=== PATIENT | male | born 1975 | race Caucasian/White ===

== ENCOUNTER 2020-07-07 12:20 | Outpatient (CLI) | payer OTHER, SELFPAY ==
[2020-07-07 12:30] LABS: Basophils Absolute Auto 0.07 K/mm3 (0.00-0.10); Basophils Percent Auto 0.8 % (0.0-1.0); Eosinophils Absolute Auto 0.19 K/mm3 (0.02-0.50); Eosinophils Percent Auto 2.2 % (1.0-6.0); Hematocrit 34.8 % (40.0-54.0); Hemoglobin 10.3 g/dL (14.0-18.0); Immature Granulocyte Absolute 0.03 K/mm3 (0.00-0.00); Immature Granulocyte Percent A 0.4 % (0.0-0.0); Lymphocytes Absolute Auto 2.15 K/mm3 (1.10-4.50); Lymphocytes Percent Auto 25.3 % (18.0-42.0); Mean Corpuscular HGB Conc 29.6 g/dL (32.0-36.0); Mean Corpuscular Hemoglobin 22.1 pg (27.0-31.0); Mean Corpuscular Volume 74.5 fL (78.0-102.0); Mean Platelet Volume 9.5 fl (8.7-11.0); Monocytes Percent Auto 8.2 % (2.0-11.0); Neutrophils Absolute Auto 5.4 K/mm3 (1.7-7.2); Neutrophils Percent Auto 63.1 % (50.0-70.0); Platelet Count Result 308 K/mm3 (150-420); Red Blood Count 4.67 M/mm3 (4.70-6.10); Red Cell Distribution Width 16.2 % (11.6-14.4); White Blood Count 8.5 K/mm3 (4.8-10.8)
[2020-07-07 12:51] LABS: Hemoglobin A1C 6.3 % (<5.7)
[2020-07-07 13:19] LABS: Add Urine Microscopic? NO; Appearance Urine Clear (Clear); Bilirubin Urine Negative (Negative); Blood Urine Negative (Negative); Color Urine Yellow (Yellow); Glucose Urine UA Negative (Negative); Ketones Urine Negative (Negative); Leukocyte Esterase Ur Negative LEU/UL (Negative); Nitrate Urine Negative (Negative); Protein Urine Negative (Negative); Urobilinogen Urine 0.2 mg/dL (0.2-1.0); pH Urine 6.5 (5.0-8.0)
[2020-07-07 13:50] LABS: Alanine Aminotransferase 457 U/L (16-63); Albumin Level 3.9 g/dL (3.4-5.0); Alkaline Phosphatase 108 U/L (46-116); Anion Gap 8 mmol/L (8-16); Aspartate Amino Transferase 277 U/L (15-37); Bilirubin,Total 0.5 mg/dL (0.00-1.00); Blood Urea Nitrogen 13 mg/dL (7-18); Calcium 8.7 mg/dL (8.5-10.1); Carbon Dioxide 26 mmol/L (21-32); Chloride 100 mmol/L (98-108); Cholesterol 149 mg/dL (0-200); Creatine Kinase 144 U/L (39-308); Estimated Glomerular Filt Rate > 60; Glucose 99 mg/dL (70-99); HDL Direct 40 mg/dL (40-60); LDL Cholesterol Calculated 84 mg/dL (<130); Osmolality Calculated 278 mOsm/kg (285-295); Potassium 4.5 mmol/L (3.5-5.1); Sodium 134 mmol/L (136-145); Total Protein 8.6 g/dL (6.4-8.2); Triglycerides 123 mg/dL (0-150)
== END 2020-07-07 12:21 | disposition home or self-care (01) ==
LOC: CHSLAB 12:21
PROVIDERS: PCP Internal Medicine; Visit Provider Internal Medicine
DX: E78.5 Hyperlipidemia, unspecified (principal); I10 Essential (primary) hypertension; R73.01 Impaired fasting glucose
CPT/HCPCS: 36415; 80053; 80061; 81003; 82550; 83036; 85025

== ENCOUNTER 2020-07-21 09:36 | Outpatient (CLI) | payer OTHER, SELFPAY ==
[2020-07-22 18:37] LABS: SARS-CoV-2 RNA PCR Positive
== END 2020-07-21 09:37 | disposition home or self-care (01) ==
LOC: CHSLAB 09:39
PROVIDERS: PCP Internal Medicine; Visit Provider Internal Medicine
DX: U07.1 COVID-19 (principal)
CPT/HCPCS: 87635; C9803; U0003

== ENCOUNTER 2020-11-17 13:37 | Outpatient (CLI) | payer OTHER, SELFPAY ==
[2020-11-17 14:36] LABS: Alanine Aminotransferase 515 U/L (16-63); Albumin Level 3.8 g/dL (3.4-5.0); Alkaline Phosphatase 100 U/L (46-116); Aspartate Amino Transferase 270 U/L (15-37); Bilirubin Direct 0.1 mg/dL (0-0.2); Bilirubin,Total 0.3 mg/dL (0.00-1.00); Total Protein 8.6 g/dL (6.4-8.2)
== END 2020-11-17 13:38 | disposition home or self-care (01) ==
LOC: CHSLAB 13:41
PROVIDERS: PCP Internal Medicine
DX: R94.5 Abnormal results of liver function studies (principal)
CPT/HCPCS: 36415; 80076

== ENCOUNTER 2021-01-05 13:55 | Outpatient (CLI) | payer OTHER, SELFPAY ==
[2021-01-05 14:14] LABS: Basophils Absolute Auto 0.08 K/mm3 (0.00-0.10); Eosinophils Absolute Auto 0.13 K/mm3 (0.02-0.50); Eosinophils Percent Auto 1.6 % (1.0-6.0); Hematocrit 31.4 % (40.0-54.0); Hemoglobin 9.2 g/dL (14.0-18.0); Immature Granulocyte Absolute 0.03 K/mm3 (0.00-0.00); Immature Granulocyte Percent A 0.4 % (0.0-0.0); Lymphocytes Absolute Auto 2.28 K/mm3 (1.10-4.50); Lymphocytes Percent Auto 28.2 % (18.0-42.0); Mean Corpuscular HGB Conc 29.3 g/dL (32.0-36.0); Mean Corpuscular Hemoglobin 20.6 pg (27.0-31.0); Mean Corpuscular Volume 70.2 fL (78.0-102.0); Mean Platelet Volume 9.6 fl (8.7-11.0); Monocytes Absolute Auto 0.77 K/mm3 (0.10-0.90); Monocytes Percent Auto 9.5 % (2.0-11.0); Neutrophils Absolute Auto 4.8 K/mm3 (1.7-7.2); Neutrophils Percent Auto 59.3 % (50.0-70.0); Platelet Count Result 367 K/mm3 (150-420); Red Blood Count 4.47 M/mm3 (4.70-6.10); White Blood Count 8.1 K/mm3 (4.8-10.8)
[2021-01-05 14:23] LABS: Add Urine Microscopic? YES; Appearance Urine Clear (Clear); Bilirubin Urine Negative (Negative); Blood Urine Negative (Negative); Color Urine Yellow (Yellow); Glucose Urine UA Negative (Negative); Ketones Urine Negative (Negative); Leukocyte Esterase Ur Negative (Negative); Nitrate Urine Negative (Negative); Protein Urine 2+ (Negative); Urobilinogen Urine 0.2 mg/dL (0.2-1.0)
[2021-01-05 14:30] LABS: Bacteria Urine Trace /hpf; Mucus Urine Few /lpf; RBC Urine None seen /hpf (0-2); Squamous Epithelial Cell Urine Rare /hpf (Few); WBC Urine None seen /hpf (0-3)
[2021-01-05 14:41] LABS: Hemoglobin A1C 6.2 % (<5.7)
[2021-01-05 15:15] LABS: Alanine Aminotransferase 560 U/L (16-63); Albumin Level 3.7 g/dL (3.4-5.0); Alkaline Phosphatase 105 U/L (46-116); Anion Gap 10 mmol/L (8-16); Aspartate Amino Transferase 180 U/L (15-37); Bilirubin,Total 0.6 mg/dL (0.00-1.00); Blood Urea Nitrogen 14 mg/dL (7-18); CRP 1.2 mg/dL (0.0-0.9); Calcium 9.2 mg/dL (8.5-10.1); Carbon Dioxide 27 mmol/L (21-32); Chloride 97 mmol/L (98-108); Cholesterol 214 mg/dL (0-200); Estimated Glomerular Filt Rate > 60; Ferritin 36 ng/mL (26-388); GGT 585 U/L (15-85); Glucose 104 mg/dL (70-99); HDL Direct 41 mg/dL (40-60); Iron 35 ug/dL (65-175); LDL Cholesterol Calculated 134 mg/dL (<130); Osmolality Calculated 278 mOsm/kg (285-295); Potassium 4.3 mmol/L (3.5-5.1); Sodium 134 mmol/L (136-145); Total Protein 8.2 g/dL (6.4-8.2); Triglycerides 195 mg/dL (0-150); Vitamin B12 811 pg/mL (193-986)
[2021-01-05 15:24] LABS: Erythrocyte Sedimentation Rate 26 mm/hr (0-15)
[2021-01-10 10:58] LABS: Actin Antibody (IgG) <20 U (<20)
[2021-01-10 21:00] LABS: Red Blood Cell Folate >1000 ng/mL RBC (>280)
[2021-01-11 08:39] LABS: Vitamin B1 9 nmol/L (8-30)
[2021-01-14 10:30] LABS: Mitochondrial (M2) Ab (IgG) 50.8 U (<=20.0)
== END 2021-01-05 13:56 | disposition home or self-care (01) ==
PROVIDERS: PCP Internal Medicine; Visit Provider Internal Medicine
DX: E78.2 Mixed hyperlipidemia (principal); I10 Essential (primary) hypertension; E11.9 Type 2 diabetes mellitus without complications; K76.9 Liver disease, unspecified; D64.9 Anemia, unspecified
CPT/HCPCS: 36415; 80053; 80061; 81001; 82607; 82728; 82747; 82977; 83036; 83516; 83520; 83540; 84425; 85025; 85652; 86038; 86140

== ENCOUNTER 2021-05-29 14:22 | Outpatient (CLI) | payer OTHER, SELFPAY ==
[2021-05-29 15:25] LABS: Alanine Aminotransferase 532 U/L (16-63); Albumin Level 3.9 g/dL (3.4-5.0); Alkaline Phosphatase 116 U/L (46-116); Aspartate Amino Transferase 223 U/L (15-37); Bilirubin Direct 0.1 mg/dL (0-0.2); Bilirubin,Total 0.3 mg/dL (0.00-1.00); Total Protein 8.1 g/dL (6.4-8.2)
== END 2021-05-29 14:23 | disposition home or self-care (01) ==
LOC: CHSLAB 14:24
PROVIDERS: PCP Internal Medicine; Visit Provider Internal Medicine Gastroenterology
DX: K76.0 Fatty (change of) liver, not elsewhere classified (principal); R74.8 Abnormal levels of other serum enzymes
CPT/HCPCS: 36415; 80076

== ENCOUNTER 2021-07-10 14:19 | Outpatient (CLI) | payer OTHER, SELFPAY ==
--- NOTE | ~2021-07-10 | XR_ITS ---
EXAMINATION: XR chest 2V DATE: 07/10/2021 15:53 INDICATION: Shortness of breath and cough TECHNIQUE: PA and lateral views of the chest are obtained. COMPARISON: 07/11/2013 FINDINGS: There are minimal airspace opacities of the right lung base. There is no pleural effusion o r pneumothorax. The cardiomediastinal silhouette is normal. There is mild thoracic spondylosis. IMPRESSION: 1. Minimal right basilar airspace opacity, consistent with atelectasis versus pneumonia. Reviewed, dictated and finalized at location B. IMPRESSION: 1. Minimal right basilar airspace opacity, consistent with atelectasis versus p neumonia.
[2021-07-10 16:28] LABS: Basophils Absolute Auto 0.07 K/mm3 (0.00-0.10); Eosinophils Absolute Auto 0.19 K/mm3 (0.02-0.50); Eosinophils Percent Auto 2.7 % (1.0-6.0); Hematocrit 29.8 % (40.0-54.0); Hemoglobin 8.6 g/dL (14.0-18.0); Immature Granulocyte Absolute 0.06 K/mm3 (0.00-0.00); Immature Granulocyte Percent A 0.9 % (0.0-0.0); Lymphocytes Absolute Auto 1.66 K/mm3 (1.10-4.50); Lymphocytes Percent Auto 23.6 % (18.0-42.0); Mean Corpuscular HGB Conc 28.9 g/dL (32.0-36.0); Mean Corpuscular Hemoglobin 20.2 pg (27.0-31.0); Mean Corpuscular Volume 70.1 fL (78.0-102.0); Monocytes Absolute Auto 0.86 K/mm3 (0.10-0.90); Monocytes Percent Auto 12.3 % (2.0-11.0); Neutrophils Absolute Auto 4.2 K/mm3 (1.7-7.2); Neutrophils Percent Auto 59.5 % (50.0-70.0); Platelet Count Result 285 K/mm3 (150-420); Red Blood Count 4.25 M/mm3 (4.70-6.10); Red Cell Distribution Width 18.3 % (11.6-14.4)
[2021-07-10 16:45] LABS: Alanine Aminotransferase 577 U/L (16-63); Albumin Level 3.7 g/dL (3.4-5.0); Alkaline Phosphatase 113 U/L (46-116); Anion Gap 9 mmol/L (8-16); Aspartate Amino Transferase 324 U/L (15-37); Bilirubin,Total 0.4 mg/dL (0.00-1.00); Blood Urea Nitrogen 10 mg/dL (7-18); Calcium 8.6 mg/dL (8.5-10.1); Carbon Dioxide 28 mmol/L (21-32); Chloride 103 mmol/L (98-108); Estimated Glomerular Filt Rate > 60; Glucose 134 mg/dL (70-99); Osmolality Calculated 291 mOsm/kg (285-295); Potassium 3.9 mmol/L (3.5-5.1); Sodium 140 mmol/L (136-145); Total Protein 8.4 g/dL (6.4-8.2)
[2021-07-10 17:40] LABS: Influenza Control Valid (Valid)
[2021-07-10 17:41] LABS: SARS-CoV-2 Ag Negative (Negative)
[2021-07-15 14:41] LABS: Mitochondrial (M2) Ab (IgG) 49.5 U (<=20.0)
== END 2021-07-10 14:20 | disposition home or self-care (01) ==
LOC: CHSLAB 14:22
PROVIDERS: PCP Internal Medicine; Visit Provider Internal Medicine
DX: J06.9 Acute upper respiratory infection, unspecified (principal); Z20.822 Contact with and (suspected) exposure to COVID-19; D64.9 Anemia, unspecified; R94.5 Abnormal results of liver function studies
CPT/HCPCS: 71046; 80053; 83520; 85025; 87081; 87147; 87426; 87804; 87880; C9803

== ENCOUNTER 2021-07-25 16:11 | Outpatient (CLI) | payer OTHER, SELFPAY ==
--- NOTE | ~2021-07-25 | XR_ITS ---
EXAMINATION: XR chest 2V 07/25/2021 16:35 INDICATION: Pneumonia. PROCEDURE: 2 view chest COMPARISON: 07/10/2021 FINDINGS: The lungs are clear. The cardiomediastinal silhouette is within normal limits. There are no pleural effusions. There is no pneumothorax suspected. IMPRESSION: 1: NO ACUTE CARDIOPULMONARY DISEASE. Reviewed, dictated and finalized at location A.
[2021-07-25 16:43] LABS: Basophils Absolute Auto 0.13 K/mm3 (0.00-0.10); Basophils Percent Auto 1.4 % (0.0-1.0); Eosinophils Absolute Auto 0.26 K/mm3 (0.02-0.50); Eosinophils Percent Auto 2.8 % (1.0-6.0); Hematocrit 33.8 % (40.0-54.0); Hemoglobin 9.2 g/dL (14.0-18.0); Immature Granulocyte Absolute 0.05 K/mm3 (0.00-0.00); Immature Granulocyte Percent A 0.5 % (0.0-0.0); Lymphocytes Absolute Auto 1.84 K/mm3 (1.10-4.50); Lymphocytes Percent Auto 19.6 % (18.0-42.0); Mean Corpuscular HGB Conc 27.2 g/dL (32.0-36.0); Mean Corpuscular Hemoglobin 19.7 pg (27.0-31.0); Mean Corpuscular Volume 72.5 fL (78.0-102.0); Mean Platelet Volume 11.2 fl (8.7-11.0); Monocytes Absolute Auto 0.82 K/mm3 (0.10-0.90); Monocytes Percent Auto 8.8 % (2.0-11.0); Neutrophils Absolute Auto 6.3 K/mm3 (1.7-7.2); Neutrophils Percent Auto 66.9 % (50.0-70.0); Platelet Count Result 182 K/mm3 (150-420); Red Blood Count 4.66 M/mm3 (4.70-6.10); Red Cell Distribution Width 18.2 % (11.6-14.4); White Blood Count 9.4 K/mm3 (4.8-10.8)
== END 2021-07-25 16:12 | disposition home or self-care (01) ==
LOC: CHSIMG 16:12
PROVIDERS: PCP Internal Medicine; Visit Provider Internal Medicine
DX: Z09 Encounter for follow-up examination after completed treatment for conditions other than malignant neoplasm (principal); J18.9 Pneumonia, unspecified organism; D64.9 Anemia, unspecified
CPT/HCPCS: 36415; 71046; 85025

== ENCOUNTER 2022-02-15 14:38 | Outpatient (CLI) | payer OTHER, SELFPAY ==
[2022-02-15 14:55] LABS: Add Urine Microscopic? NO; Appearance Urine Clear (Clear); Basophils Absolute Auto 0.06 K/mm3 (0.00-0.10); Basophils Percent Auto 0.6 % (0.0-1.0); Bilirubin Urine Negative (Negative); Blood Urine Negative (Negative); Color Urine Light Yellow (Yellow); Eosinophils Absolute Auto 0.18 K/mm3 (0.02-0.50); Eosinophils Percent Auto 1.9 % (1.0-6.0); Glucose Urine UA Negative (Negative); Hematocrit 35.9 % (40.0-54.0); Hemoglobin 10.9 g/dL (14.0-18.0); Immature Granulocyte Absolute 0.03 K/mm3 (0.00-0.00); Immature Granulocyte Percent A 0.3 % (0.0-0.0); Ketones Urine Negative (Negative); Leukocyte Esterase Ur Negative LEU/UL (Negative); Lymphocytes Absolute Auto 2.51 K/mm3 (1.10-4.50); Lymphocytes Percent Auto 26.6 % (18.0-42.0); Mean Corpuscular HGB Conc 30.4 g/dL (32.0-36.0); Mean Corpuscular Hemoglobin 24.1 pg (27.0-31.0); Mean Corpuscular Volume 79.2 fL (78.0-102.0); Mean Platelet Volume 11.1 fl (8.7-11.0); Monocytes Absolute Auto 0.61 K/mm3 (0.10-0.90); Monocytes Percent Auto 6.5 % (2.0-11.0); Neutrophils Absolute Auto 6.1 K/mm3 (1.7-7.2); Neutrophils Percent Auto 64.1 % (50.0-70.0); Nitrate Urine Negative (Negative); Platelet Count Result 299 K/mm3 (150-420); Protein Urine Negative (Negative); Red Blood Count 4.53 M/mm3 (4.70-6.10); Red Cell Distribution Width 17.1 % (11.6-14.4); Specific Grav Ur <= 1.005 (1.010-1.020); Urobilinogen Urine 0.2 mg/dL (0.2-1.0); White Blood Count 9.5 K/mm3 (4.8-10.8)
[2022-02-15 15:20] LABS: Alanine Aminotransferase 92 U/L (16-63); Alkaline Phosphatase 125 U/L (46-116); Anion Gap 10 mmol/L (8-16); Aspartate Amino Transferase 50 U/L (15-37); Bilirubin,Total 0.5 mg/dL (0.00-1.00); Blood Urea Nitrogen 19 mg/dL (7-18); Calcium 8.9 mg/dL (8.5-10.1); Carbon Dioxide 27 mmol/L (21-32); Chloride 98 mmol/L (98-108); Cholesterol 186 mg/dL (0-200); Estimated Glomerular Filt Rate > 60; Glucose 87 mg/dL (70-99); HDL Direct 39 mg/dL (40-60); LDL Cholesterol Calculated 111 mg/dL (<130); Osmolality Calculated 281 mOsm/kg (285-295); Potassium 4.5 mmol/L (3.5-5.1); Sodium 135 mmol/L (136-145); Total Protein 8.1 g/dL (6.4-8.2); Triglycerides 179 mg/dL (0-150)
== END 2022-02-15 14:39 | disposition home or self-care (01) ==
LOC: CHSLAB 14:40
PROVIDERS: PCP Internal Medicine; Visit Provider Internal Medicine
DX: E78.5 Hyperlipidemia, unspecified (principal)
CPT/HCPCS: 36415; 80053; 80061; 81003; 85025

== ENCOUNTER 2023-05-27 13:55 | Outpatient (CLI) | payer OTHER, SELFPAY ==
[2023-05-27 14:10] LABS: Basophils Absolute Auto 0.06 K/mm3 (0.00-0.10); Basophils Percent Auto 0.8 % (0.0-1.0); Eosinophils Absolute Auto 0.12 K/mm3 (0.02-0.50); Eosinophils Percent Auto 1.6 % (1.0-6.0); Hematocrit 39.5 % (40.0-54.0); Hemoglobin 13.3 g/dL (14.0-18.0); Immature Granulocyte Absolute 0.05 K/mm3 (0.00-0.00); Immature Granulocyte Percent A 0.7 % (0.0-0.0); Lymphocytes Absolute Auto 1.48 K/mm3 (1.10-4.50); Lymphocytes Percent Auto 20.1 % (18.0-42.0); Mean Corpuscular HGB Conc 33.7 g/dL (32.0-36.0); Mean Corpuscular Hemoglobin 30.9 pg (27.0-31.0); Mean Corpuscular Volume 91.6 fL (78.0-102.0); Mean Platelet Volume 9.9 fl (8.7-11.0); Monocytes Absolute Auto 0.53 K/mm3 (0.10-0.90); Monocytes Percent Auto 7.2 % (2.0-11.0); Neutrophils Absolute Auto 5.1 K/mm3 (1.7-7.2); Neutrophils Percent Auto 69.6 % (50.0-70.0); Platelet Count Result 179 K/mm3 (150-420); Red Blood Count 4.31 M/mm3 (4.70-6.10); Red Cell Distribution Width 13.6 % (11.6-14.4); White Blood Count 7.4 K/mm3 (4.8-10.8)
[2023-05-27 14:15] LABS: Appearance Urine Clear (Clear); Bilirubin Urine Negative (Negative); Blood Urine Negative (Negative); Color Urine Light Yellow (Yellow); Glucose Urine UA Negative (Negative); Ketones Urine Negative (Negative); Leukocyte Esterase Ur Negative LEU/UL (Negative); Nitrate Urine Negative (Negative); Protein Urine Negative (Negative); Specific Grav Ur <= 1.005 (1.010-1.020); Urobilinogen Urine 0.2 mg/dL (0.2-1.0); pH Urine 6.5 (5.0-8.0)
[2023-05-27 14:16] LABS: Add Urine Microscopic? NO
[2023-05-27 14:21] LABS: Prothrombin Time 11.4 Seconds (9.50-12.10)
[2023-05-27 14:23] LABS: Hemoglobin A1C 5.9 % (<5.7)
[2023-05-27 14:55] LABS: Alanine Aminotransferase 275 U/L (16-63); Albumin Level 3.9 g/dL (3.4-5.0); Alkaline Phosphatase 151 U/L (46-116); Anion Gap 8 mmol/L (8-16); Aspartate Amino Transferase 193 U/L (15-37); Bilirubin,Total 0.5 mg/dL (0.00-1.00); Blood Urea Nitrogen 15 mg/dL (7-18); Calcium 9.2 mg/dL (8.5-10.1); Carbon Dioxide 29 mmol/L (21-32); Chloride 101 mmol/L (98-108); Estimated Glomerular Filt Rate > 60; Ferritin 424 ng/mL (26-388); Glucose 108 mg/dL (70-99); Iron 172 ug/dL (65-175); Osmolality Calculated 287 mOsm/kg (285-295); Percent Iron Saturation 38 % (12-57); Potassium 4.4 mmol/L (3.5-5.1); Prostate Specific Antigen 0.5 ng/mL (< OR = 4.0); Sodium 138 mmol/L (136-145); Total Protein 8.2 g/dL (6.4-8.2); Uric Acid 8.1 mg/dL (3.5-7.2)
[2023-05-31 03:00] LABS: Hepatitis A Antibody IgM Nonreactive; Hepatitis B Core Antibody Nonreactive (Nonreactive); Hepatitis B Surface Antigen Nonreactive (Nonreactive); Hepatitis C Virus Antibody Nonreactive
== END 2023-05-27 13:56 | disposition home or self-care (01) ==
LOC: CHSLAB 13:57
PROVIDERS: PCP Family Medicine; Visit Provider Family Medicine
DX: N18.9 Chronic kidney disease, unspecified (principal); E11.9 Type 2 diabetes mellitus without complications; R10.9 Unspecified abdominal pain; R74.01 Elevation of levels of liver transaminase levels; K75.81 Nonalcoholic steatohepatitis (NASH); R35.1 Nocturia; K52.9 Noninfective gastroenteritis and colitis, unspecified; D50.9 Iron deficiency anemia, unspecified; M10.9 Gout, unspecified
CPT/HCPCS: 36415; 80053; 80074; 81003; 82728; 83036; 83540; 83550; 84153; 84550; 85025; 85610; G0103

== ENCOUNTER 2024-09-03 14:28 | Emergency (ER) | payer OTHER, SELFPAY ==
[2024-09-03] VITALS (44 sets, daily range): BP systolic 120–151; BP diastolic 68–93; PULSE 87–105; RESP 16–24; TEMP 35.8–36.8; O2SAT 92–98
--- NOTE | ~2024-09-03 | CT_ITS ---
EXAMINATION: CT abdomen pelvis wo con DATE: 09/03/2024 15:33 INDICATION: Alcohol disease. Abdominal distention. TECHNIQUE: Computed tomography (CT) of the abdomen and pelvis was performed without intravenous contr ast. Automated exposure control and iterative reconstruction technique were employed. The dose-length product was 1321.72 mGy-cm. COMPARISON: 02/19/2018 FINDINGS: Lung bases are clear. Heart size normal. Minimal atherosclerotic coronary artery calcification. No pe ricardial or pleural effusion. Hepatomegaly with diffuse hepatic steatosis. Gallbladder, pancreas and bilateral adrenal glands are normal. Splenomegaly measuring 18.7 cm maximal AP length. Status post l eft nephrectomy with multiple surgical clips at the left nephrectomy bed. 2.8 cm cyst at the anterior pole of the horizontally oriented right kidney. Bowels including the appendix are normal. Bladder is normal. No abscess or free intraperitoneal gas. Trace amount of ascites in the deep pelvis.. No path ologically enlarged abdominal or pelvic lymphadenopathy. Small fat-containing umbilical hernia. 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 IMPRESSION: 1. Trace amount of mesenteric ascites in the deep pelvis. No other acute intra-abdominal/pelvic proce ss. 2. Hepatosplenomegaly with diffuse hepatic steatosis. Reviewed, dictated and finalized at location A. IMPRESSION: 1. Trace amount of mesenteric ascites in the deep pelvis. No other acute intra- abdominal/pelvic process. 2. Hepatosplenomegaly with diffuse hepatic steatosis.
--- NOTE | 2024-09-03 15:15 | ED_ITS ---
HPI - General Adult General Chief complaint: Abdominal Pain Stated complaint: abdominal swelling Time Seen by Provider: 09/03/24 14:31 Source: patient Mode of arrival: ambulatory Limitations: no limitations and intoxication ( Currently mildly intoxicated with alcohol / pleasant) History of Present Illness HPI narrative: patient is a 48-year-old male with longstanding alcoholism here with abdominal distension which has gotten worse over time. Primary doctor sent him in for a hepatitis of alcoholism related workup at this time. He has stopped drinking for as long as he can remember and has no history of DTs. patient has ulcerative colitis and has a GI specialist. No definite bleeding. Onset (ago): year(s) Location: abdomen ( Distended without pain) Radiation: non-radiation Severity: severe Severity scale (1-10): 8 ( severity of distension without pain) Quality: other ( no pain) Pain Consistency: other ( no pain) Relieving factors: none Exacerbating factors: none Associated symptoms: nausea/vomiting ( every morning) Treatments prior to arrival: none Related Data Home Medications Medication Instructions Recorded Confirmed mesalamine 1.2 gram tablet,delayed 1.2 g PO DAILY 05/27/23 09/03/24 release feyduibs-shlfmrhl-elsjv acid 400 1 tablet PO DAILY 05/27/23 09/03/24 mcg-vit K 20 mcg-lycop 300 mcg tablet (One-A-Day Men's Multivitamin) Allergies Allergy/AdvReac Type Severity Reaction Status Date / Time grass pollen Allergy Severe RESPIRATORY Verified 09/03/24 13:25 ISSUES tree and shrub pollen Allergy Severe RESPIRATORY Verified 09/03/24 13:25 ISSUES erythromycin base Allergy Intermediate RASH Verified 09/03/24 13:25 Review of Systems Review of Systems: All systems reviewed & are unremarkable except as noted in HPI and below Constitutional: Constitutional: Reports no additional constitutional complaints Eyes: Eyes: Reports no additional eye complaints ENT: Reports system reviewed and no additional complaints, except as documented Cardiovascular: Cardiovascular: Reports no additional cardiovascular complaints Respiratory: Respiratory: Reports no additional respiratory complaints Gastrointestinal: Gastrointestinal: Reports no additional gastrointestinal complaints Genitourinary: Genitourinary: Reports no additional male genitourinary complaints Musculoskeletal: Musculoskeletal: Reports no additional musculoskeletal complaints Integumentary/Breasts: Skin/Breast: Reports system reviewed and no additional complaints, except as docu Neurologic: Reports system reviewed and no additional complaints, except as documented Psychiatric: Psychiatric: Reports no additional psychiatric complaints Endocrine: Endocrine: Reports no additional endocrine complaints Hematologic/Lymphatic: Hematologic/Lymphatic: Reports no additional hematologic/lymphatic complaints Allergic/Immunologic: Allergic/Immunologic: Reports no additional allergic/immunologic complaints [facility] Surgical History Surgical History H/O inguinal hernia repair H/O knee surgery Family History Family History Other Breast cancer Carcinoma of colon Diabetes mellitus Heart disease Hypertension Social History Social History Smoking status: Never smoker Tobacco type: cigarettes Alcohol intake: current Alcohol use details: social Lack of Transportation: No Lack of Food: Never True Current Housing: I Have Housing Concerned About Future Housing: No Difficulty Paying Gas/Electric Bills: No Difficulty Paying for Meds: No Currently Unemployed: No Education: Bachelor's Degree Difficulty w/ Childcare or Family Care: No Living arrangements: with family Occupation/Education: occupation 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[employer] Exam Const: General: healthy appearing Nutritional Appearance: well nourished and obese Orientation/consciousness: patient oriented x3 Limitations: other limitations ( mildly intoxicated with alcohol /pleasant) HENMT: Head: normal to inspection Ears: external ears normal Face/Nose/Sinus: Normal external nose present Eyes: Conjunctivae: conjunctivae normal Pupils: Equal, round and reactive pupils present EOM: EOMs intact bilaterally Neck: Neck: normal visual inspection Chest: Chest palpation & inspection: normal inspection of the chest Resp: Effort & Inspection: normal respiratory effort and not labored Auscultation: clear to auscultation bilaterally and no crackles Cardio: Rate: regular rate Rhythm: regular rhythm Heart sounds: no murmurs GI: Inspection: distended GI Palp: Yes Soft to palpation ( soft to firm due to fluid in the abdomen), No Tenderness to palpation present (GI), No Guarding due to palpation present (GI), No Rigid due to palpation, No Hernia present, No Palpable mass present and No Rebound tenderness present Auscultation: normal bowel sounds : General: Yes bladder normal to palpation Back/Spine/Pelvis: Back: no CVA tenderness Skin: General skin exam: normal color Rashes: no rashes Wounds: no wounds Neuro: General: patient oriented x3 Cranial nerves: Yes Nystagmus not present Speech: normal speech Gait exam (Neuro): Normal gait present Extrem: General: normal to inspection Psych: Mental Status: mental status grossly normal Affect: normal affect and Sad affect present Attitude: cooperative Other: history of depression without suicide or homicide ideation at this time Course Vital Signs Vital signs: Vital Signs Temperature 36.8 C 09/03/24 14:28 Pulse Rate 96 09/03/24 14:28 Respiratory Rate 16 09/03/24 14:28 Blood Pressure 140/88 09/03/24 14:28 Pulse Oximetry 96 09/03/24 14:28 Oxygen Delivery Room Air 09/03/24 14:28 Temperature 36.8 C 09/03/24 14:28 Pulse Rate 90 09/03/24 17:01 Respiratory Rate 20 09/03/24 17:01 Blood Pressure 123/78 09/03/24 17:01 Pulse Oximetry 95 09/03/24 17:01 Oxygen Delivery Room Air 09/03/24 17:01 Medical Decision Making MDM Narrative Medical decision making narrative: patient is a 48-year-old male with alcoholism. He is here with a distended abdomen without pain. His primary doctor called me and would like him admitted for further workup. He will need to be monitored for alcohol withdrawal. No history of DTs. Patient will be transferred for ulcerative colitis and signif icant anemia however he is stable at this time. Further he has alcoholism and will likely need withdrawal coverage. Vital Signs Vital Signs: Vital Signs Temperature 36.8 C 09/03/24 14:28 Pulse Rate 96 09/03/24 14:28 Respiratory Rate 16 09/03/24 14:28 Blood Pressure 140/88 09/03/24 14:28 Pulse Oximetry 96 09/03/24 14:28 Oxygen Delivery Room Air 09/03/24 14:28 Temperature 36.8 C 09/03/24 14:28 Pulse Rate 90 09/03/24 17:01 Respiratory Rate 20 09/03/24 17:01 Blood Pressure 123/78 09/03/24 17:01 Pulse Oximetry 95 09/03/24 17:01 Oxygen Delivery Room Air 09/03/24 17:01 Lab Data Lab results reviewed: Yes I reviewed the patient's lab results. 09/03/24 15:13 09/03/24 15:13 Labs: Lab Results 09/03/24 09/03/24 09/03/24 Range/Units 15:13 15:14 15:16 WBC 8.7 (4.8-10.8) K/mm3 RBC 3.24 L (4.70-6.10) M/mm3 Hgb 6.2 L* (14.0-18.0) g/dL Hct 22.3 L (40.0-54.0) % MCV 68.8 L (78.0-102.0) fL MCH 19.1 L (27.0-31.0) pg MCHC 27.8 L (32-36) g/dL RDW 19.8 H (11.6-14.4) % Plt Count 172 (150-420) K/mm3 MPV 9.6 (8.7-11.0) fl Immature Gran % (Auto) 0.6 H (0.0-0.0) % Neut % (Auto) 74.3 H (50.0-70.0) % Lymph % (Auto) 11.9 L (18.0-42.0) % [place] % (Auto) 10.0 (2.0-11.0) % Eos % (Auto) 2.3 (1.0-6.0) % Baso % (Auto) 0.9 (0.0-1.0) % Lymph # (Auto) 1.04 L (1.10-4.50) K/mm3 [place] # (Auto) 0.87 (0.10-0.90) K/mm3 Eos # (Auto) 0.20 (0.02-0.50) K/mm3 Baso # (Auto) 0.08 (0.00-0.10) K/mm3 Abs Immat Gran (auto) 0.05 H (0.00-0.00) K/mm3 Absolute Neuts (auto) 6.49 (1.70-7.20) K/mm3 Absolute Nucleated RBC 0.02 H (0.00-0.00) K/mm3 Nucleated RBC % 0.2 H (0-0.0) % PT 11.9 (9.50-12.1) Seconds INR 1.1 APTT 27.7 (23.9-30.70) Sec Sodium 131 L (136-145) mmol/L Potassium 4.4 (3.5-5.1) mmol/L Chloride 96 L (98-108) mmol/L Carbon Dioxide 23 (21-32) mmol/L Anion Gap 12 (4-12) mmol/L BUN 7 (7-18) mg/dL Creatinine 0.97 (0.70-1.30) mg/dL Estim Creat Clear Calc 111 ml/min Estimated GFR > 60 (59 - ) Glucose 122 H (70-99) mg/dL Calculated Osmolality 271 L (285-295) mOsm/kg Lactic Acid 2.5 H (0.4-2.0) mmol/L Calcium 8.8 (8.5-10.1) mg/dL Magnesium 2.1 (1.8-2.4) mg/dL Total Bilirubin 0.8 (0.00-1.00) mg/dL AST 169 H (15-37) U/L ALT 112 H (16-63) U/L Alkaline Phosphatase 210 H (46-116) U/L NT-Pro-B Natriuret Pep 73 (0-125) pg/mL Total Protein 8.5 H (6.4-8.2) g/dL Albumin 3.0 L (3.4-5.0) g/dL Lipase 209 H (16-77) U/L Urine Color (Yellow) Urine Appearance (Clear) Urine pH (5.0-8.0) Ur Specific [place] (1.010-1.020) Urine Protein (Negative) Urine Glucose (UA) (Negative) Urine Ketones (Negative) Ur Blood (Man) (Negative) Urine Nitrate (Negative) Urine Bilirubin (Negative) Urine Urobilinogen (0.2-1.0) mg/dL Leukocyte Esterase Rfl (Negative) TREVA/UL Ethyl Alcohol 273 H* (0-6) mg/dL Hepatitis A IgM Ab Pending Hep Bs Antigen Pending Hep B Core IgM Ab Pending Hepatitis C Antibody Pending Hep C Ab Signal/Cutoff Pending Hep C Ab Comment Pending Blood Type A Positive Antibody Screen Negative 09/03/24 Range/Units 16:15 WBC (4.8-10.8) K/mm3 RBC (4.70-6.10) M/mm3 Hgb (14.0-18.0) g/dL Hct (40.0-54.0) % MCV (78.0-102.0) fL MCH (27.0-31.0) pg MCHC (32-36) g/dL RDW (11.6-14.4) % Plt Count (150-420) K/mm3 MPV (8.7-11.0) fl Immature Gran % (Auto) (0.0-0.0) % Neut % (Auto) (50.0-70.0) % Lymph % (Auto) (18.0-42.0) % [place] % (Auto) (2.0-11.0) % Eos % (Auto) (1.0-6.0) % Baso % (Auto) (0.0-1.0) % Lymph # (Auto) (1.10-4.50) K/mm3 [place] # (Auto) (0.10-0.90) K/mm3 Eos # (Auto) (0.02-0.50) K/mm3 Baso # (Auto) (0.00-0.10) K/mm3 Abs Immat Gran (auto) (0.00-0.00) K/mm3 Absolute Neuts (auto) (1.70-7.20) K/mm3 Absolute Nucleated RBC (0.00-0.00) K/mm3 Nucleated RBC % (0-0.0) % PT (9.50-12.1) Seconds INR APTT (23.9-30.70) Sec Sodium (136-145) mmol/L Potassium (3.5-5.1) mmol/L Chloride (98-108) mmol/L Carbon Dioxide (21-32) mmol/L Anion Gap (4-12) mmol/L BUN (7-18) mg/dL Creatinine (0.70-1.30) mg/dL Estim Creat Clear Calc ml/min Estimated GFR (59 - ) Glucose (70-99) mg/dL Calculated Osmolality (285-295) mOsm/kg Lactic Acid (0.4-2.0) mmol/L Calcium (8.5-10.1) mg/dL Magnesium (1.8-2.4) mg/dL Total Bilirubin (0.00-1.00) mg/dL AST (15-37) U/L ALT (16-63) U/L Alkaline Phosphatase (46-116) U/L NT-Pro-B Natriuret Pep (0-125) pg/mL Total Protein (6.4-8.2) g/dL Albumin (3.4-5.0) g/dL Lipase (16-77) U/L Urine Color Light yellow (Yellow) Urine Appearance Clear (Clear) Urine pH 6.0 (5.0-8.0) Ur Specific [place] <= 1.005 L (1.010-1.020) Urine Protein Negative (Negative) Urine Glucose (UA) Negative (Negative) Urine Ketones Negative (Negative) Ur Blood (Man) Negative (Negative) Urine Nitrate Negative (Negative) Urine Bilirubin Negative (Negative) Urine Urobilinogen 0.2 (0.2-1.0) mg/dL Leukocyte Esterase Rfl Negative (Negative) TREVA/UL Ethyl Alcohol (0-6) mg/dL Hepatitis A IgM Ab Hep Bs Antigen Hep B Core IgM Ab Hepatitis C Antibody Hep C Ab Signal/Cutoff Hep C Ab Comment Blood Type Antibody Screen Imaging Data Attestation: I personally reviewed and interpreted this imaging study as follows: Discharge Plan Discharge Clinical Impression: Anemia, Ulcerative colitis, Alcoholism, Hepatomegaly, Splenomegaly Patient Disposition: Acute Care Hospital Condition: Stable Prescriptions: No Action One-A-Day Men's Multivitamin 400-20-300 mcg tablet 1 tablet PO DAILY mesalamine 1.2 gram tablet,delayed release (DR/EC) 1.2 g PO DAILY omeprazole magnesium [Prilosec OTC] 20 mg tablet,delayed release (DR/EC) 20 mg PO DAILY Qty: 90 3RF quetiapine [Seroquel] 50 mg tablet 50 mg PO QHS Qty: 90 3RF acamprosate 333 mg tablet,delayed release (DR/EC) 333 mg PO BID Qty: 120 3RF Rx Instructions: administer with mid-day and evening meals carvedilol 12.5 mg tablet See Rx Instructions .ROUTE .COMPLEX Qty: 180 3RF Dose Instruction: TAKE 1 TABLET TWICE A DAY, MUST TAKE WITH A MEAL/FOOD Rx Instructions: TAKE 1 TABLET TWICE A DAY, MUST TAKE WITH A MEAL/FOOD escitalopram oxalate 10 mg tablet 10 mg PO DAILY Qty: 90 0RF gabapentin 300 mg capsule 300 mg PO QHS Qty: 90 1RF prazosin 2 mg capsule 2 mg PO QHS Qty: 90 1RF Follow-up/Referrals: Carlos Schumacher DO [Primary Care Provider] - Time of Disposition: 20:00
[2024-09-03 15:27] LABS: Lactic Acid Reflex 2.5 mmol/L (0.4-2.0)
[2024-09-03 15:29] LABS: Basophils Absolute Auto 0.08 K/mm3 (0.00-0.10); Basophils Percent Auto 0.9 % (0.0-1.0); Eosinophils Percent Auto 2.3 % (1.0-6.0); Hematocrit 22.3 % (40.0-54.0); Immature Granulocyte Absolute 0.05 K/mm3 (0.00-0.00); Immature Granulocyte Percent A 0.6 % (0.0-0.0); Lymphocytes Absolute Auto 1.04 K/mm3 (1.10-4.50); Lymphocytes Percent Auto 11.9 % (18.0-42.0); Mean Corpuscular HGB Conc 27.8 g/dL (32-36); Mean Corpuscular Hemoglobin 19.1 pg (27.0-31.0); Mean Corpuscular Volume 68.8 fL (78.0-102.0); Mean Platelet Volume 9.6 fl (8.7-11.0); Monocytes Absolute Auto 0.87 K/mm3 (0.10-0.90); Neutrophils Absolute Auto 6.49 K/mm3 (1.70-7.20); Neutrophils Percent Auto 74.3 % (50.0-70.0); Nucleated Red Blood Cells Absolute Auto 0.02 K/mm3 (0.00-0.00); Nucleated Red Blood Cells Perc 0.2 % (0-0.0); Platelet Count Result 172 K/mm3 (150-420); Red Blood Count 3.24 M/mm3 (4.70-6.10); Red Cell Distribution Width 19.8 % (11.6-14.4); White Blood Count 8.7 K/mm3 (4.8-10.8)
[2024-09-03 15:31] LABS: Hemoglobin 6.2 g/dL (14.0-18.0)
[2024-09-03 15:32] LABS: Alanine Aminotransferase 112 U/L (16-63); Alkaline Phosphatase 210 U/L (46-116); Anion Gap 12 mmol/L (4-12); Aspartate Amino Transferase 169 U/L (15-37); Bilirubin,Total 0.8 mg/dL (0.00-1.00); Blood Urea Nitrogen 7 mg/dL (7-18); Calcium 8.8 mg/dL (8.5-10.1); Carbon Dioxide 23 mmol/L (21-32); Chloride 96 mmol/L (98-108); Estimated CRCL calculation 111 ml/min; Estimated Glomerular Filt Rate > 60; Glucose 122 mg/dL (70-99); Osmolality Calculated 271 mOsm/kg (285-295); Potassium 4.4 mmol/L (3.5-5.1); Sodium 131 mmol/L (136-145); Total Protein 8.5 g/dL (6.4-8.2)
[2024-09-03 15:33] LABS: INR 1.1; Lipase 209 U/L (16-77); Magnesium 2.1 mg/dL (1.8-2.4); Partial Thromboplastin Time 27.7 Sec (23.9-30.70); Prothrombin Time 11.9 Seconds (9.50-12.1)
[2024-09-03 15:34] LABS: Ethanol 273 mg/dL (0-6)
[2024-09-03 15:50] LABS: NT Pro B Type Natriuretic Pept 73 pg/mL (0-125)
[2024-09-03 16:36] LABS: Add Urine Microscopic? NO; Appearance Urine Clear (Clear); Bilirubin Urine Negative (Negative); Blood Urine Negative (Negative); Color Urine Light Yellow (Yellow); Glucose Urine UA Negative (Negative); Ketones Urine Negative (Negative); Leukocyte Esterase Ur Negative LEU/UL (Negative); Nitrate Urine Negative (Negative); Protein Urine Negative (Negative); Specific Grav Ur <= 1.005 (1.010-1.020); Urobilinogen Urine 0.2 mg/dL (0.2-1.0)
[2024-09-03 18:22] LABS: Reflex Lactic Acid Yes or No Add Lactic
[2024-09-03 19:13] LABS: Lactic Acid 1.4 mmol/L (0.4-2.0)
--- NOTE | 2024-09-03 19:15 | PC.NURSE ---
assumed care from [facility]key [facility]. patient is resting on stretcher with family at his side
--- NOTE | 2024-09-03 19:48 | PC.NURSE ---
1919 report to bola uribe
--- NOTE | 2024-09-03 20:06 | PC.NURSE ---
patient has a history of chronic back pain. patient was able to ambulate self to the bathroom and back to room
--- NOTE | 2024-09-03 20:32 | PC.NURSE ---
patient ambulated to the bathroom. patient will yell out at times.
--- NOTE | 2024-09-03 20:42 | PC.NURSE ---
patient reports that he will stay for 1 unit of prbc
--- NOTE | 2024-09-03 21:05 | PC.NURSE ---
blood consent signed and placed on chart
[2024-09-03] MEDS: SODIUM CHLORIDE 0.9% IV 250 ML 30 ML IV CONT (21:18)
--- NOTE | 2024-09-03 21:33 | PC.NURSE ---
PRBC infusing to right ac. patient denies any reaction to prbc products. is at the bedside. patient has call light in reach.
--- NOTE | 2024-09-03 21:50 | PC.NURSE ---
patient is resting on stretcher with at his side. denies any reaction to prbc infusion. call light in reach
[2024-09-03 23:07] LABS: Hematocrit 24.1 % (40.0-54.0)
[2024-09-03 23:11] LABS: Hemoglobin 6.8 g/dL (14.0-18.0)
[2024-09-04 13:04] LABS: Hepatitis A Antibody IgM NON-REACTIVE (NON-REACTIVE); Hepatitis B Core Antibody NON-REACTIVE (NON-REACTIVE); Hepatitis B Surface Antigen NON-REACTIVE (NON-REACTIVE); Hepatitis C Virus Antibody NON-REACTIVE (NON-REACTIVE)
== END 2024-09-03 23:33 | disposition home or self-care (01) ==
PROVIDERS: Emergency Provider Emergency Medicine; PCP Family Medicine
DX: D64.9 Anemia, unspecified (principal); K51.90 Ulcerative colitis, unspecified, without complications; R16.0 Hepatomegaly, not elsewhere classified; R16.1 Splenomegaly, not elsewhere classified
CPT/HCPCS: 36415; 36430; 74176; 80053; 80074; 81003; 82077; 83605; 83690; 83735; 83880; 85014; 85018; 85025; 85610; 85730; 86850; 86900; 86901; 86920; 96360; 99284; 99285; J7050; P9016

== ENCOUNTER 2024-09-14 15:20 | Outpatient (CLI) | payer OTHER, SELFPAY ==
[2024-09-14 15:37] LABS: Basophils Absolute Auto 0.08 K/mm3 (0.00-0.10); Basophils Percent Auto 0.7 % (0.0-1.0); Eosinophils Absolute Auto 0.19 K/mm3 (0.02-0.50); Eosinophils Percent Auto 1.8 % (1.0-6.0); Hematocrit 26.2 % (40.0-54.0); Hemoglobin 7.4 g/dL (14.0-18.0); Immature Granulocyte Absolute 0.07 K/mm3 (0.00-0.00); Immature Granulocyte Percent A 0.6 % (0.0-0.0); Lymphocytes Absolute Auto 1.37 K/mm3 (1.10-4.50); Lymphocytes Percent Auto 12.7 % (18.0-42.0); Mean Corpuscular HGB Conc 28.2 g/dL (32-36); Mean Corpuscular Hemoglobin 19.8 pg (27.0-31.0); Mean Corpuscular Volume 70.1 fL (78.0-102.0); Mean Platelet Volume 8.8 fl (8.7-11.0); Monocytes Absolute Auto 0.98 K/mm3 (0.10-0.90); Monocytes Percent Auto 9.1 % (2.0-11.0); Neutrophils Absolute Auto 8.12 K/mm3 (1.70-7.20); Neutrophils Percent Auto 75.1 % (50.0-70.0); Nucleated Red Blood Cells Absolute Auto 0.03 K/mm3 (0.00-0.00); Nucleated Red Blood Cells Perc 0.3 % (0-0.0); Platelet Count Result 191 K/mm3 (150-420); Red Blood Count 3.74 M/mm3 (4.70-6.10); Red Cell Distribution Width 21.3 % (11.6-14.4); White Blood Count 10.8 K/mm3 (4.8-10.8)
[2024-09-14 16:30] LABS: Thyroid Stimulating Hormone Reflex 3.54 u/IU/mL (0.36-3.74)
[2024-09-14 16:40] LABS: Alanine Aminotransferase 67 U/L (16-63); Albumin Level 3.2 g/dL (3.4-5.0); Alkaline Phosphatase 239 U/L (46-116); Anion Gap 13 mmol/L (4-12); Aspartate Amino Transferase 129 U/L (15-37); Bilirubin,Total 0.8 mg/dL (0.00-1.00); Blood Urea Nitrogen 8 mg/dL (7-18); Carbon Dioxide 25 mmol/L (21-32); Chloride 96 mmol/L (98-108); Estimated Glomerular Filt Rate > 60; Ferritin 24 ng/mL (26-388); Folic Acid 19.1 ng/mL (8.6->20); Glucose 120 mg/dL (70-99); Iron 22 ug/dL (65-175); Osmolality Calculated 277 mOsm/kg (285-295); Percent Iron Saturation 4 % (12-57); Potassium 4.1 mmol/L (3.5-5.1); Sodium 134 mmol/L (136-145); Total Protein 9.1 g/dL (6.4-8.2); Vitamin B12 450 pg/mL (193-986)
== END 2024-09-14 15:21 | disposition home or self-care (01) ==
PROVIDERS: PCP Family Medicine; Visit Provider Family Medicine
DX: D50.9 Iron deficiency anemia, unspecified (principal); E03.9 Hypothyroidism, unspecified; D64.9 Anemia, unspecified; E53.8 Deficiency of other specified B group vitamins
CPT/HCPCS: 36415; 80053; 82607; 82728; 82746; 83540; 83550; 84443; 85025

== ENCOUNTER 2025-09-19 13:58 | Emergency (ER) | payer OTHER, SELFPAY ==
[2025-09-19] VITALS (39 sets, daily range): BP systolic 133–178; BP diastolic 69–92; PULSE 83–102; RESP 20–24; TEMP 36.5–37; O2SAT 96–100
--- NOTE | 2025-09-19 | CONSULT_PTH ---
PATIENT: Leeroy Martinez LOC: [facility] U#:[id number] AGE/SX: 50/M ROOM: RE09/19/[address]: Michael Lambert MD : [id number] BED: DIS: 09/19/2025 SPEC #: [id number] RECD: 09/19/25 16:15 STATUS: CHARLES REQ #: [id number] DOYLE: 09/19/25 00:[address]: Michael Lambert DEPT: [facility] Consult RECD BY: Laurie Burkett MT,([facility]) ENTERED: 09/19/25 16:16 SP TYPE: Consult OTHR DR: Carlos Schumacher DO Tissues: A - Peripheral Smear Procedures: Hematology Consult
--- NOTE | ~2025-09-19 | CT_ITS ---
EXAM/PROCEDURE: CTA abdomen pelvis HISTORY: gi bleed COMPARISON: September 03, 2024 TECHNIQUE: IV contrast enhanced CT of abdomen and pelvis performed FINDINGS: The lower thoracic and abdominal aorta are normal in size and enhancement. Pelvic inflow and outflow arteries are patent. Celiac access, both mesenteric and the right renal artery patent. 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 Small right and trace left-sided pleural effusion with mild to moderately severe cardiomegaly. No pericardial effusion seen. Within the abdomen and pelvis the bowel gas pattern is nonobstructive with no free air or pneumatosis. Small amount of free fluid throughout the abdomen and pelvis. Moderately severe hepatomegaly with the liver measuring 26 cm in the cephalocaudal dimension. Mild splenomegaly. Left nephrectomy changes. 2.8 cm left renal cyst not grossly changed. 1.6 cm cystic lesion in the liver image 90 series 3 not clearly changed. Gastrohepatic lymphadenopathy appear stable. The gallbladder has mild diffuse wall thickening. No radiopaque gallstones or gross CT evidence of acute pancreatitis or biliary ductal dilatation. No AAA or grossly inflamed appendix. Tiny fat-containing inguinal hernias. Small umbilical fat-containing hernia. Moderate amount of stool extending to the cecum. IMPRESSION: 1. Ascites, pleural effusions, cardiomegaly, mild urinary bladder wall thickening as well as gallbladder wall thickening could all be associated with third spacing of fluid. Correlate clinically to exclude cholecystitis and/or urinary bladder infection. 2. Significantly enlarged liver. 1.8 cm low-density lesion not as well characterized on last year's noncontrast exam. This patient is at risk for hepatocellular carcinoma, correlation with liver MRI is recommended. 3. No arterial occlusion seen. Reviewed, dictated and finalized at location A. RENTAL CLERK IMPRESSION: 1. Ascites, pleural effusions, cardiomegaly, mild urinary bladder wall thickeni ng as well as gallbladder wall thickening could all be associated with third sp acing of fluid. Correlate clinically to exclude cholecystitis and/or urinary bl adder infection. 2. Significantly enlarged liver. 1.8 cm low-density lesion not as well characte rized on last year's noncontrast exam. This patient is at risk for hepatocellul ar carcinoma, correlation with liver MRI is recommended. 3. No arterial occlusion seen.
--- NOTE | ~2025-09-19 | XR_ITS ---
Examination: XR chest 1V portable Clinical History: sob Comparison: X-rays 07/25/2021 Technique: Portable AP Findings: Cardiac silhouette enlarged. Lungs clear. No acute bony abnormality. IMPRESSION: 1. Pericardial effusion and/or cardiomegaly. 2. Lungs clear. Reviewed, dictated and finalized at location R. CULTURAL PRODUCTION ENGINEER
--- NOTE | 2025-09-19 13:59 | ECG_ITS ---
Test Date: 2025-09-19 14:18:26 Measurements Intervals [place] Rate: 84 P: 54 MI: 134 QRS: 74 QRSD: 104 T: 46 QT: 388 QTc: 460 Interpretive Statements SINUS RHYTHM No previous ECG available for comparison Electronically Signed On 09-19-2025 15:21:50 [employer] by Waqas Hairston M.D.
[2025-09-19 14:17] LABS: Immature Granulocyte Percent A 1.7 % (0.0-0.0); Lymphocytes Absolute Auto 1.17 K/mm3 (1.10-4.50); Mean Corpuscular HGB Conc 26.6 g/dL (32-36); Mean Corpuscular Hemoglobin 17.0 pg (27.0-31.0); Mean Corpuscular Volume 64.1 fL (78.0-102.0); Nucleated Red Blood Cells Absolute Auto 0.13 K/mm3 (0.00-0.00); Nucleated Red Blood Cells Perc 1.2 % (0-0.0); Platelet Count Result 196 K/mm3 (150-420); Red Blood Count 2.70 M/mm3 (4.70-6.10); White Blood Count 11.2 K/mm3 (4.8-10.8)
[2025-09-19 14:21] LABS: Hemoglobin 4.6 g/dL (14.0-18.0)
[2025-09-19 14:22] LABS: Hematocrit 17.3 % (40.0-54.0)
[2025-09-19 14:23] LABS: INR 1.2; Prothrombin Time 13.0 Seconds (9.50-12.1)
[2025-09-19 14:56] LABS: Alanine Aminotransferase 51 U/L (6-50); Albumin Level 4.4 g/dL (3.5-5.1); Alkaline Phosphatase 179 U/L (38-126); Anion Gap 15 mmol/L (4-12); Aspartate Amino Transferase 79 U/L (17-59); Blood Urea Nitrogen 7 mg/dL (9-20); Calcium 8.4 mg/dL (8.4-10.2); Carbon Dioxide 18 mmol/L (22-30); Chloride 84 mmol/L (98-107); Estimated CRCL calculation 168 ml/min; Estimated Glomerular Filt Rate > 60; Glucose 143 mg/dL (65-110); Osmolality Calculated 244 mOsm/kg (285-295); Potassium 4.9 mmol/L (3.4-5.0); Total Protein 8.1 g/dL (6.3-8.2)
[2025-09-19 14:57] LABS: Sodium 117 mmol/L (137-145)
[2025-09-19 15:05] LABS: Troponin I < 0.012 ng/mL (0.000-0.034)
[2025-09-19 15:43] LABS: Add Urine Microscopic? YES; Appearance Urine Clear (Clear); Glucose Urine UA Negative (Negative); Leukocyte Esterase Ur Negative (Negative); Nitrate Urine Negative (Negative); Specific Grav Ur 1.015 (1.010-1.020)
[2025-09-19] MEDS: SODIUM CHLORIDE 0.9% IV 250 ML 30 ML IV CONT (15:45)
[2025-09-19 15:55] LABS: Other Sediment Urine Spermatazoa /hpf
--- NOTE | 2025-09-19 17:21 | ED.GENADULT ---
HPI - General Adult General Chief complaint: Shortness of Breath/Dyspnea Stated complaint: SOB Time Seen by Provider: 09/19/25 13:59 History of Present Illness HPI narrative: 50-year-old with a history of alcoholism from ulcerative colitis, any me a here with a complains of shortness of breath associated with dizziness or loss couple days. Patient stated this morning he felt extremely lightheaded and short of breath. Denies any chest pain. Patient states that he had similar issues femur months ago and was given blood transfusion. His last drink was last night. Denies any fever or chills. Patient states that he loses blood on a daily basis because of his ulcerative colitis . Endorses Dr. Ibanez as his GI . Related Data Home Medications ?Medication ?Instructions ?Recorded ?Confirmed ?Last Taken ?Type mesalamine 1.2 gram tablet,delayed 1.2 g PO DAILY 05/27/23 01/25/25 Unknown History release cfvvlevr-juvrekni-hcfhq acid 400 1 tablet PO DAILY 05/27/23 01/25/25 Unknown History mcg-vit K 20 mcg-lycop 300 mcg tablet (One-A-Day Men's Multivitamin) Allergies Allergy/AdvReac Type Severity Reaction Status Date / Time grass pollen Allergy Severe RESPIRATORY Verified 09/19/25 14:16 ISSUES tree and shrub pollen Allergy Severe RESPIRATORY Verified 09/19/25 14:16 ISSUES erythromycin base Allergy Intermediate RASH Verified 09/19/25 14:16 Review of Systems Review of Systems: All systems reviewed & are unremarkable except as noted in HPI and below Constitutional: Constitutional: Reports no additional constitutional complaints Eyes: Eyes: Reports no additional eye complaints ENT: Reports system reviewed and no additional complaints, except as documented Cardiovascular: Cardiovascular: Reports no additional cardiovascular complaints Respiratory: Respiratory: Reports as per HPI Gastrointestinal: Gastrointestinal: Reports as per HPI Musculoskeletal: Musculoskeletal: Reports no additional musculoskeletal complaints Neurologic: Reports system reviewed and no additional complaints, except as documented [facility] Surgical History Surgical History H/O knee surgery H/O inguinal hernia repair Family History Family History Other Breast cancer Carcinoma of colon Diabetes mellitus Heart disease Hypertension Social History Social History Smoking status: Never smoker Tobacco type: cigarettes Alcohol intake: current Alcohol use details: social Lack of Transportation: No Lack of Food: Never True Current Housing: I Have Housing Concerned About Future Housing: No Difficulty Paying Gas/Electric Bills: No Difficulty Paying for Meds: No Currently Unemployed: No Education: Bachelor's Degree Difficulty w/ Childcare or Family Care: No Living arrangements: with family Occupation/Education: occupation 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 EYES: PERRLA and EOMI. ENT: Nares clear, no rhinorrhea or epistaxis. Mucous membranes moist. NECK: Supple. CHEST: Clear to auscultation. No respiratory distress. HEART: Regular rate and rhythm. No murmur heard. Normal peripheral pulses. ABDOMEN: Soft,distended , has a fluid thrill EXTREMITIES: Normal range of motion. No edema. SKIN: Warm, dry, no rash. NEURO: No focal deficits. Alert and oriented x3. PSYCH: Normal mood and affect. Course Course Emergency Course: His hemoglobin was 4.6 IV and ordered 2 units of PRBC. CTA of the abdomen and Pelvis did not show any active bleed , pt wanted to be transfered to [facility] , however they do not have GI , pt is now being transferred to [facility] .Discussed with .accepted the pt in transfer Vital Signs Vital signs: Vital Signs Temperature 36.5 C 09/19/25 13:58 Pulse Rate 88 09/19/25 13:58 Respiratory Rate 20 09/19/25 13:58 Blood Pressure 149/75 H 09/19/25 13:58 Pulse Oximetry 100 09/19/25 13:58 Oxygen Delivery Room Air 09/19/25 13:58 Temperature 37.0 C 09/19/25 16:09 Pulse Rate 84 09/19/25 16:45 Respiratory Rate 20 09/19/25 16:45 Blood Pressure 147/69 H 09/19/25 16:45 Pulse Oximetry 96 09/19/25 16:46 Oxygen Delivery Room Air 09/19/25 16:45 Medical Decision Making [facility] Narrative Medical decision making narrative: 50-year-old here with the dizziness, shortness of history of alcohol abuse and ulcerative colitis exam appears to be pale abdomen distended consistent with the side is the obtain lab work, CT of the abdomen and pelvis to rule out active bleed. Meanwhile will gently hydrate him with normal saline. Mom Differential Diagnosis Differential Diagnosis: Alcohol withdrawal, anemia secondary to GI bleed, CHF Medical Records Medical records reviewed: Yes I reviewed the external patient's medical records. Vital Signs Vital Signs: Vital Signs Temperature 36.5 C 09/19/25 13:58 Pulse Rate 88 09/19/25 13:58 Respiratory Rate 20 09/19/25 13:58 Blood Pressure 149/75 H 09/19/25 13:58 Pulse Oximetry 100 09/19/25 13:58 Oxygen Delivery Room Air 09/19/25 13:58 Temperature 37.0 C 09/19/25 16:09 Pulse Rate 84 09/19/25 16:45 Respiratory Rate 20 09/19/25 16:45 Blood Pressure 147/69 H 09/19/25 16:45 Pulse Oximetry 96 09/19/25 16:46 Oxygen Delivery Room Air 09/19/25 16:45 Lab Data Lab results reviewed: Yes I reviewed the patient's lab results. 09/19/25 14:08 09/19/25 14:08 Labs: Lab Results 09/19/25 09/19/25 09/19/25 Range/Units 14:05 14:08 15:38 WBC 11.2 H (4.8-10.8) K/mm3 RBC 2.70 L (4.70-6.10) M/mm3 Hgb 4.6 L* (14.0-18.0) g/dL Hct 17.3 L* (40.0-54.0) % MCV 64.1 L (78.0-102.0) fL MCH 17.0 L (27.0-31.0) pg MCHC 26.6 L (32-36) g/dL RDW 20.6 H (11.6-14.4) % Plt Count 196 (150-420) K/mm3 MPV 9.5 (8.7-11.0) fl Immature Gran % (Auto) 1.7 H (0.0-0.0) % Neut % (Auto) 77.8 H (50.0-70.0) % Lymph % (Auto) 10.5 L (18.0-42.0) % [place] % (Auto) 8.0 (2.0-11.0) % Eos % (Auto) 1.7 (1.0-6.0) % Baso % (Auto) 0.3 (0.0-1.0) % Lymph # (Auto) 1.17 (1.10-4.50) K/mm3 [place] # (Auto) 0.89 (0.10-0.90) K/mm3 Eos # (Auto) 0.19 (0.02-0.50) K/mm3 Baso # (Auto) 0.03 (0.00-0.10) K/mm3 Abs Immat Gran (auto) 0.19 H (0.00-0.00) K/mm3 Absolute Neuts (auto) 8.68 H (1.70-7.20) K/mm3 Absolute Nucleated RBC 0.13 H (0.00-0.00) K/mm3 Nucleated RBC % 1.2 H (0-0.0) % PT 13.0 H (9.50-12.1) Seconds INR 1.2 Sodium 117 L* (137-145) mmol/L Potassium 4.9 (3.4-5.0) mmol/L Chloride 84 L (98-107) mmol/L Carbon Dioxide 18 L (22-30) mmol/L Anion Gap 15 H (4-12) mmol/L BUN 7 L (9-20) mg/dL Creatinine 0.62 L (0.7-1.3) mg/dL Estim Creat Clear Calc 168 ml/min Estimated GFR > 60 (59 - ) Glucose 143 H (65-110) mg/dL Calculated Osmolality 244 L (285-295) mOsm/kg Calcium 8.4 (8.4-10.2) mg/dL Total Bilirubin 2.3 H (0.2-1.3) mg/dL AST 79 H (17-59) U/L ALT 51 H (6-50) U/L Alkaline Phosphatase 179 H (38-126) U/L Troponin I < 0.012 (0.000-0.034) ng/mL Total Protein 8.1 (6.3-8.2) g/dL Albumin 4.4 (3.5-5.1) g/dL Urine Color Yellow (Yellow) Urine Appearance Clear (Clear) Urine pH 6.0 (5.0-8.0) Ur Specific [place] 1.015 (1.010-1.020) Urine Protein 2+ H (Negative) Urine Glucose (UA) Negative (Negative) Urine Ketones 1+ H (Negative) Ur Blood (Man) Negative (Negative) Urine Nitrate Negative (Negative) Urine Bilirubin Negative (Negative) Urine Urobilinogen 1.0 (0.2-1.0) mg/dL Ur Leukocyte Esterase Negative (Negative) Urine RBC 0-2 (0-2) /hpf Urine WBC 0-3 (0-3) /hpf Ur Squamous Epith Cells Rare (Few) /hpf Other Sediment Spermatazoa H (None) /hpf Urine Bacteria 1+ (None) /hpf Ur Random Sodium 46 meq/L Blood Type A Positive Antibody Screen Negative Crossmatch See Detail Imaging Data Radiologist's impression: ITS Impressions Chest X-Ray 09/19/25 14:29 IMPRESSION: 1. Pericardial effusion and/or cardiomegaly. 2. Lungs clear. Abdomen/Pelvis CTA 09/19/25 15:50 IMPRESSION: 1. Ascites, pleural effusions, cardiomegaly, mild urinary bladder wall thickening as well as gallbladder wall thickening could all be associated with third spacing of fluid. Correlate clinically to exclude cholecystitis and/or urinary bladder infection. 2. Significantly enlarged liver. 1.8 cm low-density lesion not as well characterized on last year's noncontrast exam. This patient is at risk for hepatocellular carcinoma, correlation with liver MRI is recommended. 3. No arterial occlusion seen. ECG Data EKG #1: ECG completion date: 09/19/25 ECG completion time: 14:18 EKG Interpretation: normal rate (84), sinus rhythm, no ST changes, normal QRS and NL axis Critical Care Time Critical Care Time Critical Care Time: Yes Total Critical Care Time: 45 (for transfusion of blood ,treating hyponatremia) Discharge Plan Discharge Clinical Impression: Dilutional hyponatremia, Alcohol abuse Anemia Qualifiers: Anemia type: iron deficiency Iron deficiency anemia type: chronic blood loss Qualified Code(s): D50.0 - Iron deficiency anemia secondary to blood loss (chronic) Ascites Qualifiers: Ascites type: due to alcoholic cirrhosis Qualified Code(s): K70.31 - Alcoholic cirrhosis of liver with ascites Alcohol withdrawal Qualifiers: Complication of substance-induced condition: uncomplicated Qualified Code(s): F10.930 - Alcohol use, unspecified with withdrawal, uncomplicated Patient Disposition: Acute Care Hospital Condition: Stable Patient Language: Icelandic Prescriptions: No Action One-A-Day Men's Multivitamin 400-20-300 mcg tablet 1 tablet PO DAILY mesalamine 1.2 gram tablet,delayed release (DR/EC) 1.2 g PO DAILY omeprazole magnesium [Prilosec OTC] 20 mg tablet,delayed release (DR/EC) 20 mg PO DAILY Qty: 90 3RF escitalopram oxalate 20 mg tablet 20 mg PO DAILY Qty: 90 3RF carvedilol 12.5 mg tablet See Rx Instructions .ROUTE .COMPLEX Qty: 180 3RF Dose Instruction: TAKE 1 TABLET TWICE A DAY, MUST TAKE WITH A MEAL/FOOD Rx Instructions: TAKE 1 TABLET TWICE A DAY, MUST TAKE WITH A MEAL/FOOD gabapentin 300 mg capsule 300 mg PO QHS Qty: 90 1RF quetiapine 50 mg tablet See Rx Instructions .ROUTE .COMPLEX Qty: 180 1RF Dose Instruction: TAKE 2 TABLETS BY MOUTH DAILY AT BEDTIME Rx Instructions: TAKE 2 TABLETS BY MOUTH DAILY AT BEDTIME allopurinol 100 mg tablet See Rx Instructions .ROUTE .COMPLEX Qty: 180 2RF Dose Instruction: TAKE 1 TABLET BY MOUTH TWICE A DAY Rx Instructions: TAKE 1 TABLET BY MOUTH TWICE A DAY prazosin 2 mg capsule See Rx Instructions .ROUTE .COMPLEX Qty: 90 1RF Dose Instruction: TAKE 1 CAPSULE BY MOUTH AT BEDTIME Rx Instructions: TAKE 1 CAPSULE BY MOUTH AT BEDTIME Follow-up/Referrals: Carlos Schumacher DO [Primary Care Provider, Family Practice] Time of Disposition: 17:23
[2025-09-19] MEDS: diazePAM INJ (*CRX) 10 MG/2 ML SYRINGE 2.5 MG IV PUSH (17:24)
[2025-09-19 17:37] LABS: Bilirubin,Total 1.6 mg/dL (0.2-1.3)
--- NOTE | 2025-09-19 18:37 | PC.NURSE ---
183 POONAM NOTIFIED TO TAKE PT OFF OF WAITING LIST
== END 2025-09-19 18:37 | disposition short-term general hospital (02) ==
PROVIDERS: Emergency Provider Family Medicine; PCP Family Medicine
DX: K70.31 Alcoholic cirrhosis of liver with ascites (principal); F10.139 Alcohol abuse with withdrawal, unspecified; E87.1 Hypo-osmolality and hyponatremia; D50.0 Iron deficiency anemia secondary to blood loss (chronic); Y90.9 Presence of alcohol in blood, level not specified
CPT/HCPCS: 36415; 36430; 71045; 74174; 80053; 81001; 84300; 84484; 85025; 85610; 86850; 86900; 86901; 86920; 93005; 96361; 96374; 99285; J3360; J7050; P9016; Q9967

== ENCOUNTER 2025-10-13 14:36 | Outpatient (CLI) | payer OTHER, SELFPAY ==
[2025-10-13 14:51] LABS: Hematocrit 37.7 % (40.0-54.0); Hemoglobin 11.3 g/dL (14.0-18.0); Immature Platelet Fraction Pct 3.6 % (1.0-7.0); Mean Corpuscular HGB Conc 30.0 g/dL (32-36); Mean Corpuscular Hemoglobin 24.3 pg (27.0-31.0); Mean Corpuscular Volume 81.1 fL (78.0-102.0); Platelet Count Result 215 K/mm3 (150-420); Red Blood Count 4.65 M/mm3 (4.70-6.10); White Blood Count 6.5 K/mm3 (4.8-10.8)
[2025-10-13 15:18] LABS: INR 1.1; Prothrombin Time 12.1 Seconds (9.50-12.1)
[2025-10-13 15:33] LABS: Basophils Absolute Manual 0.45 K/mm3 (0-0.1); Basophils Percent Manual 7 % (0-1); Eosinophils Absolute Manual 0.26 K/mm3 (0.02-0.50); Eosinophils Percent Manual 4 % (1-6); Lymphocytes Absolute Manual 1.88 K/mm3 (1.1-4.5); Lymphocytes Percent Manual 29 % (18-44); Monocytes Absolute Manual 0.39 K/mm3 (0.1-0.90); Monocytes Percent Manual 6 % (3-9); Neutrophils Percent Manual 68 % (46-73)
[2025-10-13 16:30] LABS: Alanine Aminotransferase 79 U/L (6-50); Albumin Level 4.7 g/dL (3.5-5.1); Alkaline Phosphatase 230 U/L (38-126); Anion Gap 10 mmol/L (4-12); Aspartate Amino Transferase 85 U/L (17-59); Bilirubin,Total 1.0 mg/dL (0.2-1.3); Blood Urea Nitrogen 11 mg/dL (9-20); Calcium 10.1 mg/dL (8.4-10.2); Carbon Dioxide 28 mmol/L (22-30); Chloride 102 mmol/L (98-107); Estimated Glomerular Filt Rate > 60; Glucose 293 mg/dL (65-110); Osmolality Calculated 300 mOsm/kg (285-295); Potassium 4.2 mmol/L (3.4-5.0); Sodium 140 mmol/L (137-145); Total Protein 9.0 g/dL (6.3-8.2)
== END 2025-10-13 14:37 | disposition home or self-care (01) ==
PROVIDERS: PCP Family Medicine; Visit Provider Family Medicine
DX: R10.9 Unspecified abdominal pain (principal); K92.2 Gastrointestinal hemorrhage, unspecified
CPT/HCPCS: 36415; 80053; 85025; 85055; 85610